=== PATIENT | female | born 1970 | race Asian ===

== ENCOUNTER 2016-09-26 03:38 | Emergency (ER) | payer BC ==
[~2016-09-26] VITALS: Ht 170.2 cm; Wt 81.6 kg
[2016-09-26 04:23] LABS: PLATELET COUNT 367 K/uL (152-353)
[2016-09-26 04:28] LABS: POTASSIUM 3.7 mmol/L (3.6-5.2); SODIUM 135 mmol/L (136-145)
== END 2016-09-26 15:00 | disposition other institution (70) ==
LOC: ED 03:38
DX: R45.851 Suicidal ideations (principal); F32.9 Major depressive disorder, single episode, unspecified
CPT/HCPCS: 36415; 80053; 80307; 80320; 80329; 81000; 85027; 99285; G0479